=== PATIENT | female | born 1985 | race American Indian/Alaskan Native ===

== ENCOUNTER 2016-07-30 01:04 | Emergency (ER) | payer MEDICAID ==
[2016-07-30 01:05] VITALS: BMI 37.5
--- NOTE | 2016-07-30 01:48 | C.PDOC ---
History Of Present Illness 30 y/o female, history of drug abuse, presents to ED requesting psych evaluation due to feeling depressed, and requests detox for PCP. Patient states she has been evaluated multiple times [place] [facility]ox requst, "but they keep sending me home". Patient also complains of vaginal irritation and thick white vaginal discharge " got some treatment at [facility] but its still there". Denies SI, HI, fever, chills, abdominal pain, nausea, vomiting , or urinary symptoms. At the time of evaluation, appears appropriate, not in any apparent distress. Time Seen by Provider: 07/30/16 01:16 Chief Complaint (Nursing): Female Genitourinary History Per: Patient History/Exam Limitations: no limitations Onset/Duration Of Symptoms: Days Current Symptoms Are (Timing): Still Present Reports Recently: Seen In ED ([facility]) Recent travel outside of the [place]: No Past Medical History Reviewed: Historical Data, Nursing Documentation, Vital Signs Vital Signs: Last Vital Signs Temp 97.9 F 07/30/16 01:17 Pulse 86 07/30/16 01:17 Resp 20 07/30/16 01:17 BP 129/82 07/30/16 01:17 Pulse Ox 99 07/30/16 01:48 - [facility] Procedures LAPAROSCOPIC CHOLECYSTECTOMY (11/21/12) OTHER LAPAROSCOPIC UMBILICAL HERNIORRHAPHY (11/21/12) Family History: States: Unknown Family Hx - Social History Hx Alcohol Use: Yes Hx Substance Use: Yes - Immunization History Hx Tetanus Toxoid Vaccination: No Hx Influenza Vaccination: No Hx Pneumococcal Vaccination: No Review Of Systems Except As Marked, All Systems Reviewed And Found Negative. Constitutional: Negative for: Fever, Chills Gastrointestinal: Negative for: Nausea, Vomiting, Abdominal Pain Genitourinary: Positive for: Vaginal Discharge. Negative for: Dysuria, Vaginal Bleeding Skin: Negative for: Rash Psych: Positive for: Depression. Negative for: Suicidal ideation Physical Exam - Physical Exam Appears: Well, Non-toxic Skin: Warm, Dry, No Rash Eye(s): bilateral: PERRL Oral Mucosa: Moist Throat: Normal, No Erythema, No Exudate, No Drooling Neck: Normal, Normal ROM, Trachea Midline Chest: Symmetrical Cardiovascular: Rhythm Regular Respiratory: Normal Breath Sounds, No Rales, No Rhonchi, No Wheezing Gastrointestinal/Abdominal: Soft, No Tenderness, No Guarding, No Rebound Back: Normal Inspection Pelvic: Other (refused) Extremity: Normal ROM, No Pedal Edema Neurological/Psych: Oriented x3, Normal Speech, Normal Cognition ED Course And Treatment - Laboratory Results Urine POC: Negative O2 Sat by Pulse Oximetry: 99 (RA) Pulse Ox Interpretation: Normal Progress Note: Pt was seen by PES and case discussed with [id number] and pt was cleared for discharge. On re-eval, pt is afebrile, hemodynamicaly stable. Non-toxic. AMbulatory in ED with stable gait. Pt denies suicidal ideation or attempts. ENT: No acute findings. Lungs: CTA B/L, BS equal B/L. Abd: benign, (-) guarding, (-) rebound. Neurologicaly intact. UA results review and c/w early UTI. Pt has clinical findings c/w PCP abuse, UTI, vulvovaginitis. ref. to F/u with PMD, Psych and detox in 1-2 days for re-eval. return to ED if any worsening or new changes. Disposition Counseled Patient/Family Regarding: Studies Performed, Diagnosis, Need For Followup, Rx Given - Disposition Referrals: [facility] [Outside] [facility] [Outside] Disposition: HOME/ ROUTINE Disposition Time: 05:00 Condition: STABLE Additional Instructions: Follow up with detox tomorrow for bed availability Take medication as prescribed Follow up with PMD in 2-3 days for re-evaluation. Prescriptions: Miconazole/Skin Cleanser No.17 [Monistat 7 Combination Pack] 1 each VG HS #1 kit Nitrofurantoin Macrocrystals [Macrobid] 1 cap PO BID #14 cap Instructions: Polysubstance Abuse (ED), Urinary Tract Infection in Women (ED) - Clinical Impression Clinical Impression: UTI (urinary tract infection), PCP (phencyclidine) abuse - PA / DIRECTOR OF CONSULTING SERVICES / Resident Statement MD/DO has reviewed & agrees with the documentation as recorded. - Scribe Statement The provider has reviewed the documentation as recorded by the Sergey Parekh Provider Scribe Attestation: All medical record entries made by the Scribe were at my direction and personally dictated by me. I have reviewed the chart and agree that the record accurately reflects my personal performance of the history, physical exam, medical decision making, and the department course for this patient. I have also personally directed, reviewed, and agree with the discharge instructions and disposition.
[2016-07-30 02:09] LABS: RBC URINE 4 /hpf (0-3); URINE BACTERIA RARE (<OCC); URINE BILIRUBIN NEGATIVE (NEGATIVE); URINE BLOOD 1+ (NEGATIVE); URINE COLOR Yellow (YELLOW); URINE GLUCOSE (UA) NORMAL (Normal); URINE KETONE 1+ mg/dL (NEGATIVE); URINE LEUKOCYTE ESTERASE 1+ Leu/uL (Negative); URINE PROTEIN 1+ mg/dL (NEGATIVE); URINE UROBILINOGEN NORMAL mg/dL (0.2-1.0); WBC URINE 11 /hpf (0-5)
[2016-07-30 05:39] VITALS: BP 148/88; PULSE 92; RESP 22; TEMP 98.3; O2SAT 97
== END 2016-07-30 05:29 | disposition home or self-care (01) ==
LOC: C.ER 01:04
DX: F16.10 Hallucinogen abuse, uncomplicated (principal); N39.0 Urinary tract infection, site not specified